=== PATIENT | male | born 1995 | race Caucasian/White ===

== ENCOUNTER 2024-11-29 23:51 | Emergency (ER) | payer OTHER ==
[~2024-11-29] VITALS: Ht 165.1 cm; Wt 86.2 kg
[2024-11-30] MEDS ORDERED: Acetaminophen/Hydrocodone 5 MG/325 MG TABLET PO ONE (00:10)
[2024-11-30] MEDS ORDERED: Ondansetron Hydrochloride 4 MG TAB SL ONE (00:10)
[2024-11-30] MEDS ORDERED: PENICILLIN VK500 MG PO (00:10)
[2024-11-30] MEDS ORDERED: PENICILLIN V POTASSIUM 500 MG TAB PO ONE (00:10)
== END 2024-11-30 00:24 | disposition home or self-care (01) ==
LOC: ED 23:51
DX: K02.9 Dental caries, unspecified (principal)

== ENCOUNTER 2025-03-11 21:30 | Emergency (ER) | payer OTHER ==
[~2025-03-11] VITALS: Ht 165.1 cm; Wt 86.2 kg
[~2025-03-11 21:30] MED LIST: PENICILLIN VK500 MG PO
[2025-03-11] MEDS ORDERED: Acetaminophen/Hydrocodone 5 MG/325 MG TABLET PO ONE ×2 (21:50→22:05)
[2025-03-11] MEDS ORDERED: PENICILLIN V POTASSIUM 500 MG TAB PO ONE (21:50)
[2025-03-11] MEDS ORDERED: Ondansetron Hydrochloride 4 MG TAB SL ONE (21:55)
== END 2025-03-11 21:58 | disposition home or self-care (01) ==
LOC: ED 21:30
DX: K02.9 Dental caries, unspecified (principal); K08.89 Other specified disorders of teeth and supporting structures